=== PATIENT | female | born 1940 | race Caucasian/White ===

== ENCOUNTER 2020-10-22 12:11 | Inpatient (IN) | payer MEDICARE ==
[~2020-10-22] VITALS: Ht 157.5 cm; Wt 89.8 kg
[2020-10-22 12:51] LABS: BASOPHILS # (AUTO) 0.1 (0.0-0.1); BASOPHILS % 0.7 % (0.0-1.0); EOSINOPHILS # (AUTO) 0.1 (0.0-0.4); EOSINOPHILS % 1.3 % (0.0-6.0); HEMATOCRIT 34.5 % (34.2-44.1); HEMOGLOBIN 11.1 g/dL (12.0-16.0); LYMPHOCYTES # (AUTO) 2.1 (1.0-3.2); LYMPHOCYTES % 25.1 % (18.0-39.1); MEAN CORPUSCULAR HEMOGLOBIN 30.6 pg (28-32); MEAN CORPUSCULAR HGB CONC 32.2 g/dL (31-35); MONOCYTES # (AUTO) 0.7 (0.2-0.8); MONOCYTES % 8.3 % (4.4-11.3); NEUTROPHILS # (AUTO) 5.3 (2.1-6.9); NEUTROPHILS % 63.4 % (38.7-80.0); PLATELET COUNT 219 x10e3/uL (140-360); RED BLOOD COUNT 3.63 x10e6/uL (3.6-5.1); RED CELL DISTRIBUTION WIDTH 14.4 % (11.7-14.4)
[2020-10-22 13:05] LABS: ALANINE AMINOTRANSFERASE 12 IU/L (0-55); ALBUMIN 3.2 g/dL (3.5-5.0); ALKALINE PHOSPHATASE 69 IU/L (40-150); ANION GAP 14.9 mmol/L (8-16); BLOOD UREA NITROGEN 16 mg/dL (7-26); BUN/CREATININE RATIO 12 (6-25); CALCIUM 9.7 mg/dL (8.4-10.2); CARBON DIOXIDE 25 mmol/L (22-29); CHLORIDE 104 mmol/L (98-107); CREATINE KINASE 14 IU/L (29-168); CREATININE, SERUM 1.32 mg/dL (0.57-1.11); EST GLOMERULAR FILTRATION RATE 39 ML/MIN (60-); GLUCOSE 151 mg/dL (74-118); MAGNESIUM 1.8 MG/DL (1.3-2.1); POTASSIUM 3.9 mmol/L (3.5-5.1); SODIUM 140 mmol/L (136-145)
[2020-10-22 13:13] LABS: INR 1.78; PROTHROMBIN TIME 21.4 seconds (11.9-14.5)
[2020-10-22 13:14] LABS: PARTIAL THROMBOPLASTIN TIME 40.6 seconds (23.8-35.5)
[2020-10-22] MEDS ORDERED: SODIUM CHLORIDE 0.9% 500ML 500 ML IV ONE (16:00)
[2020-10-22] MEDS ORDERED: ONDANSETRON HCL INJ 2MG/ML 2ML 2 MG/ML VIAL IV PRN (16:00)
[2020-10-22] MEDS ORDERED: SODIUM CHLORIDE 0.9% 1000ML 1,000 ML IV SCH (16:00)
[2020-10-22] MEDS ORDERED: DULOXETINE HCL30 MG PO (17:11)
[2020-10-22] MEDS ORDERED: TRESIBA FL200 UNIT/1 (17:11)
[2020-10-22] MEDS ORDERED: DOXAZOSIN MESYLA2 MG PO (17:11)
[2020-10-22] MEDS ORDERED: SYNTHROID75 MCG PO (17:11)
[2020-10-22] MEDS ORDERED: CLONIDINE HCL0.1 MG PO (17:11)
[2020-10-22] MEDS ORDERED: ALLOPURINOL100 MG PO (17:11)
[2020-10-22] MEDS ORDERED: CARVEDILOL25 MG PO (17:11)
[2020-10-22] MEDS ORDERED: HYDRALAZINE HC100 MG PO (17:11)
[2020-10-22] MEDS ORDERED: ISOSORBIDE MONO30 MG PO (17:11)
[2020-10-22] MEDS ORDERED: RALOXIFENE HCL60 MG PO (17:11)
[2020-10-22 17:13] LABS: COLOR,URINE YELLOW (YELLOW)
[2020-10-22 17:14] LABS: CLARITY,URINE SL CLOUDY (CLEAR); KETONES,URINE NEGATIVE (NEGATIVE); LEUKOCYTE ESTERASE ,URINE LARGE (NEGATIVE); NITRITE,URINE POSITIVE (NEGATIVE); PROTEIN,URINE DIPSTICK 2+ (NEGATIVE); URINE UROBILINOGEN 0.2 mg/dL (0.2 - 1)
[2020-10-22 17:15] LABS: BACTERIA,URINE MODERATE /HPF; EPITHELIAL CELLS,URINE FEW /LPF; MUCUS,URINE MODERATE (RARE); RBC,URINE >50 /HPF (0-5); WBC,URINE (MAN) >50 /HPF (0-5)
[2020-10-22] MEDS: PIPERACILLIN/TAZOBACTAM 2.25 GM in SODIUM CHLORIDE 0.9% 50ML 50 ML IV SCH (17:31)
[2020-10-22 20:00] VITALS: BP 167/54
[2020-10-22 22:16] LABS: CREATINE KINASE 19 IU/L (29-168)
[2020-10-22 23:09] VITALS: BP 167/54
[2020-10-22 23:21] VITALS: BP 167/54
[2020-10-23] VITALS (8 sets, daily range): BP systolic 123–169; BP diastolic 43–59
[2020-10-23] MEDS: PIPERACILLIN/TAZOBACTAM 2.25 GM in SODIUM CHLORIDE 0.9% 50ML 50 ML IV SCH ×4 (00:31→17:10)
[2020-10-23 06:51] LABS: BASOPHILS # (AUTO) 0.1 (0.0-0.1); BASOPHILS % 0.8 % (0.0-1.0); EOSINOPHILS # (AUTO) 0.1 (0.0-0.4); EOSINOPHILS % 1.1 % (0.0-6.0); HEMATOCRIT 33.6 % (34.2-44.1); HEMOGLOBIN 10.7 g/dL (12.0-16.0); LYMPHOCYTES # (AUTO) 1.4 (1.0-3.2); LYMPHOCYTES % 18.3 % (18.0-39.1); MEAN CORPUSCULAR HEMOGLOBIN 30.1 pg (28-32); MEAN CORPUSCULAR HGB CONC 31.8 g/dL (31-35); MEAN CORPUSCULAR VOLUME 94.6 fL (81-99); MONOCYTES # (AUTO) 0.7 (0.2-0.8); NEUTROPHILS # (AUTO) 5.5 (2.1-6.9); NEUTROPHILS % 69.8 % (38.7-80.0); PLATELET COUNT 196 x10e3/uL (140-360); RED BLOOD COUNT 3.55 x10e6/uL (3.6-5.1); RED CELL DISTRIBUTION WIDTH 14.1 % (11.7-14.4)
[2020-10-23 07:15] LABS: ALBUMIN 2.9 g/dL (3.5-5.0); CALCIUM 9.1 mg/dL (8.4-10.2); CHOL/HDL RATIO 2.4 (3.0-3.6); CREATININE, SERUM 1.35 mg/dL (0.57-1.11)
[2020-10-23 07:48] LABS: CREATINE KINASE 13 IU/L (29-168)
[2020-10-23] MEDS: ASPIRIN 81 MG ENTERIC COATED PO SCH ×2 (09:56→10:06)
[2020-10-23] MEDS ORDERED: ATORVASTATIN CA20 MG PO (12:44)
[2020-10-23] MEDS ORDERED: SYNTHROID75 MCG PO (12:46)
[2020-10-23] MEDS ORDERED: BENICAR40 MG PO (12:46)
[2020-10-23] MEDS ORDERED: TORSEMIDE20 MG PO (12:46)
[2020-10-23] MEDS ORDERED: POTASSIUM CHLO20 ME1 PO (12:46)
[2020-10-23] MEDS ORDERED: TYLENOL EXTRA500 MG PO (12:50)
[2020-10-23] MEDS ORDERED: XARELTO20 MG PO (12:50)
[2020-10-23] MEDS ORDERED: ZYRTEC10 M3 PO (12:57)
[2020-10-23] MEDS ORDERED: DOXAZOSIN MESYLA2 MG PO (12:57)
[2020-10-23] MEDS ORDERED: VITAMIN D3 COM1 EACH PO (12:57)
[2020-10-23] MEDS ORDERED: HYDRALAZINE HCL 20 MG/ML VIAL IV PRN (13:00)
[2020-10-23] MEDS ORDERED: DEXTROSE 50% SYRINGE 50 ML IV PRN (13:15)
[2020-10-23] MEDS: FAMOTIDINE 20 MG TAB PO SCH (16:22)
[2020-10-23] MEDS: CARVEDILOL 12.5 MG TAB PO SCH (16:22)
[2020-10-23] MEDS: ISOSORBIDE MONONITRATE 30 MG TAB CR PO SCH (16:23)
[2020-10-23] MEDS: HYDRALAZINE HCL 100 MG TABLET PO SCH (16:29)
[2020-10-23] MEDS: INSULIN LISPRO 100 UNIT/1 ML 3ML VIAL SQ SCH ×2 (16:30→21:00)
[2020-10-23] MEDS: ALLOPURINOL 100 MG TAB PO SCH (18:36)
[2020-10-23] MEDS: ACETAMINOPHEN 325 MG TAB PO PRN (18:36)
[2020-10-23] MEDS ORDERED: DOXAZOSIN MESYLATE 2 MG TAB PO SCH (21:00)
[2020-10-23] MEDS ORDERED: DULOXETINE HCL 30 MG DELAYED RELEASE PO SCH (21:00)
[2020-10-23] MEDS ORDERED: CLONIDINE HCL 0.1 MG TAB PO SCH (21:00)
[2020-10-23] MEDS ORDERED: RIVAROXABAN 20 MG TABLET PO SCH (21:00)
[2020-10-24] VITALS: BP 134/46
[2020-10-24] MEDS: PIPERACILLIN/TAZOBACTAM 2.25 GM in SODIUM CHLORIDE 0.9% 50ML 50 ML IV SCH ×2 (00:37→06:03)
[2020-10-24 04:00] VITALS: BP 159/65
[2020-10-24] MEDS ORDERED: LEVOTHYROXINE SODIUM 75 MCG TAB PO SCH (06:30)
[2020-10-24 06:47] LABS: BASOPHILS # (AUTO) 0.1 (0.0-0.1); BASOPHILS % 0.8 % (0.0-1.0); EOSINOPHILS # (AUTO) 0.1 (0.0-0.4); EOSINOPHILS % 2.1 % (0.0-6.0); HEMATOCRIT 32.2 % (34.2-44.1); HEMOGLOBIN 10.4 g/dL (12.0-16.0); LYMPHOCYTES # (AUTO) 1.6 (1.0-3.2); MEAN CORPUSCULAR HEMOGLOBIN 30.9 pg (28-32); MEAN CORPUSCULAR HGB CONC 32.3 g/dL (31-35); MEAN CORPUSCULAR VOLUME 95.5 fL (81-99); MONOCYTES # (AUTO) 0.7 (0.2-0.8); MONOCYTES % 10.8 % (4.4-11.3); NEUTROPHILS # (AUTO) 3.7 (2.1-6.9); NEUTROPHILS % 59.3 % (38.7-80.0); PLATELET COUNT 178 x10e3/uL (140-360); RED BLOOD COUNT 3.37 x10e6/uL (3.6-5.1); RED CELL DISTRIBUTION WIDTH 14.3 % (11.7-14.4)
[2020-10-24 07:03] LABS: CREATININE, SERUM 1.35 mg/dL (0.57-1.11)
[2020-10-24 07:24] LABS: THYROID STIMULATING HORMONE 0.89 uIU/mL (0.350-4.940)
[2020-10-24] MEDS: INSULIN LISPRO 100 UNIT/1 ML 3ML VIAL SQ SCH ×3 (07:30→16:30)
[2020-10-24 08:33] VITALS: BP 191/74
[2020-10-24] MEDS ORDERED: LORATADINE 10 MG TAB PO SCH (09:00)
[2020-10-24] MEDS ORDERED: TORSEMIDE 10 MG TAB PO SCH (09:00)
[2020-10-24] MEDS ORDERED: ALLOPURINOL 100 MG TAB PO SCH (09:00)
[2020-10-24] MEDS ORDERED: ATORVASTATIN 20 MG TAB PO SCH (09:00)
[2020-10-24 09:08] VITALS: BP 191/74
[2020-10-24] MEDS: ISOSORBIDE MONONITRATE 30 MG TAB CR PO SCH ×2 (09:14→17:00)
[2020-10-24] MEDS: ALLOPURINOL 100 MG TAB PO SCH ×2 (09:14→17:19)
[2020-10-24] MEDS: HYDRALAZINE HCL 100 MG TABLET PO SCH ×2 (09:14→17:00)
[2020-10-24] MEDS: ACETAMINOPHEN 325 MG TAB PO PRN ×2 (09:14→16:16)
[2020-10-24] MEDS: FAMOTIDINE 20 MG TAB PO SCH ×2 (09:15→17:19)
[2020-10-24] MEDS: CARVEDILOL 12.5 MG TAB PO SCH ×2 (09:15→17:00)
[2020-10-24 13:16] VITALS: BP 144/56
[2020-10-24] MEDS ORDERED: MEROPENEM 1GM 100 ML IV SCH (13:30)
[2020-10-24 17:22] VITALS: BP 143/45
[2020-10-24] MEDS ORDERED: MERREM500 MG IV (17:55)
== END 2020-10-24 18:32 | disposition home health service (06) | DRG 690 ==
LOC: ER 12:21 → ERHOLD 16:00 → MED/SURG3 19:50
PROVIDERS: ADMIT Internal Medicine; ATTEND Internal Medicine
PROC: 02HV33Z Insertion of Infusion Device into Superior Vena Cava, Percutaneous Approach (ICD-10-PCS; principal; 2020-10-24)
DX: N39.0 Urinary tract infection, site not specified (principal); N18.4 Chronic kidney disease, stage 4 (severe); I48.20 Chronic atrial fibrillation, unspecified; Z16.12 Extended spectrum beta lactamase (ESBL) resistance; H81.10 Benign paroxysmal vertigo, unspecified ear; E11.22 Type 2 diabetes mellitus with diabetic chronic kidney disease; I12.9 Hypertensive chronic kidney disease with stage 1 through stage 4 chronic kidney disease, or unspecified chronic kidney disease; E03.9 Hypothyroidism, unspecified; E66.9 Obesity, unspecified; Z68.36 Body mass index [BMI] 36.0-36.9, adult; Z79.01 Long term (current) use of anticoagulants; Z83.3 Family history of diabetes mellitus; Z82.3 Family history of stroke; Z80.9 Family history of malignant neoplasm, unspecified; Z88.2 Allergy status to sulfonamides; B96.1 Klebsiella pneumoniae [K. pneumoniae] as the cause of diseases classified elsewhere; Z88.1 Allergy status to other antibiotic agents; Z88.5 Allergy status to narcotic agent; F32.9 Major depressive disorder, single episode, unspecified; Z20.822 Contact with and (suspected) exposure to COVID-19
CPT/HCPCS: 36415; 36569; 70450; 70544; 70547; 70551; 71045; 80048; 80053; 80061; 81001; 82550; 82553; 82948; 83036; 83735; 83880; 84443; 84484; 85025; 85610; 85730; 87086; 87186; 93005; 93306; 99284; J2543; J7030; J7040; U0002